=== PATIENT | male | born 1950 | race Caucasian/White ===

== ENCOUNTER 2019-03-17 22:10 | Emergency (ER) | payer MEDICARE ==
[2019-03-17] MEDS ORDERED: NS 0.9% 1000 ML** 1,000 ML IV.FLUID IV ONE (22:39)
--- NOTE | 2019-03-17 22:47 | ED ---
Lower Extremity - HPI Summary HPI Summary: Pt is a 69 y/o M presenting to the ED with a chief complaint of RLE pain. He states he was walking his dogs yesterday when they ran into him, knocking him to the ground, twice. Both episodes were unwitnessed, but pt has been limping and complaining of pain in his R castellanos and R knee. Pts notes he woke up last night around 0100 in extreme pain with very warm skin, and he was very fatigued and slept all day today. He has also been slightly short of breath with some chest wall pain, and has not eaten much d/t sleeping all day. - History of Current Complaint Chief Complaint: EDExtremityLower Stated Complaint: PAIN IN BOTH LEGS PER PT Time Seen by Provider: 03/17/19 22:32 Hx Obtained From: Patient Mechanism Of Injury: Fall From A Standing Position Onset of Pain: Immediate Onset/Duration: Still Present Severity Initially: Moderate Severity Currently: Severe Pain Intensity: 8 Pain Scale Used: 0-10 Numeric Timing: Constant, Lasting Hours Location: Is Discrete @ - RLE Associated Signs And Symptoms: Positive: Fever, Knee Pain Aggravating Factor(s): Nothing Alleviating Factor(s): Nothing Able to Bear Weight: Yes - limping - Allergies/Home Medications Allergies/Adverse Reactions: Allergies Allergy/AdvReac Type Severity Reaction Status Date / Time lacosamide [From Vimpat] Allergy Unknown Verified 03/17/19 22:16 Reaction Details levofloxacin [From Levaquin] Allergy Unknown Verified 03/17/19 22:16 Reaction Details lorazepam [From Ativan] Allergy Unknown Verified 03/17/19 22:16 Reaction Details oxcarbazepine Allergy Unknown Verified 03/17/19 22:16 [From Trileptal] Reaction Details Home Medications: Home Medications Atorvastatin* [Lipitor*] 40 mg PO DAILY 03/17/19 [History Confirmed 03/17/19] Famotidine 20 mg PO BID 03/17/19 [History Confirmed 03/17/19] Folic Acid 1 mg PO DAILY 03/17/19 [History Confirmed 03/17/19] Gabapentin CAP(*) [Neurontin 300 CAP(*)] 300 mg PO TID 03/17/19 [History Confirmed 03/17/19] Metoprolol Tartrate TAB* [Lopressor TAB*] 12.5 mg PO DAILY 03/17/19 [History Confirmed 03/17/19] OLANzapine TAB* [Zyprexa 5 MG TAB*] 5 mg PO DAILY 03/17/19 [History Confirmed ] Sertraline HCl [Zoloft] 150 mg PO DAILY 03/17/19 [History Confirmed 03/17/19] Tamsulosin HCl [Flomax] 0.4 mg PO DAILY 03/17/19 [History Confirmed 03/17/19] Thiamine HCl 100 mg PO DAILY 03/17/19 [History Confirmed 03/17/19] lamoTRIgine [Lamotrigine] 100 mg PO BID 03/17/19 [History Confirmed 03/17/19] PMH/Surg Hx/FS Hx/Imm Hx Previously Healthy: Yes Endocrine/Hematology History: Reports: Hx Anticoagulant Therapy Denies: Hx Diabetes Cardiovascular History: Reports: Hx Atrial Fibrillation, Hx Myocardial Infarction - 2012, w/ stent Neurological History: Reports: Hx CVA - 11/2014, Hx Seizures - "nonvisible" dx' ed 2015 Infectious Disease History: No Infectious Disease History: Denies: Traveled Outside the [place] in Last 30 Days - Family History Known Family History: Negative: Diabetes - Social History Lives: With Family Alcohol Use: None Hx Substance Use: No Substance Use Type: Reports: None Hx Tobacco Use: No Smoking Status (MU): Never Smoked Tobacco Review of Systems Positive: Fever - subjective - pt felt very warm, Fatigue, Other - decreased appetite Positive: Chest Pain - chest wall Positive: Shortness Of Breath Positive: Arthralgia, Myalgia All Other Systems Reviewed And Are Negative: Yes Physical Exam - Summary Physical Exam Summary: Appearance: Healthy-appearing man lying on the stretcher. Noted to be somewhat hypertensive in triage, but BP appears to have improved spontaneously. Skin: Warm, dry, no obvious rash Eyes: sclera anicteric, no conjunctival pallor ENT: mucous membranes moist, pharynx appears normal Neck: Supple, nontender Respiratory: Clear to auscultation, no signs of respiratory distress Cardiovascular: Irregularly irregular rhythm. No murmurs. Normal distal pulses in tibial and radial bilaterally. Abdomen: Soft, nontender, normal active bowel sounds present Musculoskeletal: Normal, Strength/ROM Intact. No external signs of trauma to either leg. No pain on ranging of hip or knee. Neurological: A&Ox3, awake and alert, mentation is normal. Speech is a bit halting, but he can answer questions and converse normally. Psychiatric: affect is normal, does not appear anxious or depressed Triage Information Reviewed: Yes Vital Signs On Initial Exam: Initial Vitals Temp Pulse Resp BP Pulse Ox 99 F 89 18 88/58 94 03/17/19 22:13 03/17/19 22:13 03/17/19 22:13 03/17/19 22:13 03/17/19 22:13 Vital Signs Reviewed: Yes Procedures - Sedation Patient Received Moderate/Deep Sedation with Procedure: No Diagnostics - Vital Signs Vital Signs Temp Pulse Resp BP Pulse Ox 03/17/19 22:13 99 F 89 18 88/58 94 - Laboratory Result Diagrams: 03/17/19 22:50 03/17/19 22:50 Lab Statement: Any lab studies that have been ordered have been reviewed, and results considered in the medical decision making process. - Radiology CXR Radiology Interpretation Completed By: ED Physician Summary of Radiographic Findings: No acute process. Pending official radiology report. Hip/Pelvis XR Radiology Interpretation Completed By: ED Physician Summary of Radiographic Findings: No fracture. Pending official radiology report. Knee XR Radiology Interpretation Completed By: ED Physician Summary of Radiographic Findings: No fracture. Pending official radiology report. RLE XR Radiology Interpretation Completed By: ED Physician Summary of Radiographic Findings: No fracture. Pending official radiology report. Lower Extremity Course/Dx - Course Course Of Treatment: Pt is a 69 y/o M presenting to the ED with a chief complaint of RLE pain. He states he was walking his dogs yesterday when they ran into him, knocking him to the ground, twice. Both episodes were unwitnessed , but pt has been limping and complaining of pain in his R castellanos. Pts notes he woke up last night around 0100 in extreme pain with very warm skin, and he was very fatigued and slept all day today. He has also been slightly short of breath with some chest wall pain, and has not eaten much d/t sleeping all day. Hx of hemorrhagic CVA, CA w/ stents, nonvisible seizures, and AFib. Pt's physical includes high blood pressure noted on triage that seems to have spontaneously resolved, irregularly irregular cardiac rhythm, no external signs of trauma to either LE, no pain with ROM at hip and knee, and the pt's speech is a bit halting, but he can answer questions and converse normally. CXR shows no acute process. R knee XR, RLE XR, and Hip/Pelvis XR all show no acute fracture. Pending official radiology report. Pt will be d/c'ed with dx of malaise and fall. He is stable and agreeable with this plan. - Diagnoses Provider Diagnoses: Malaise, Fall Discharge ED - Sign-Out/Discharge Documenting (check all that apply): Patient Departure - Discharge Plan Condition: Good Disposition: HOME Patient Education Materials: Fall Prevention for Older Adults (ED), Viral Syndrome (ED) Referrals: [facility] [Outside] Additional Instructions: If you seem to improve over the next few days no specific followup is needed, but certainly if you start feeling worse in any way we should see you back. - Billing Disposition and Condition Condition: GOOD Disposition: Home - Attestation Statements Document Initiated by Chapis: Yes Documenting Scribe: Justina Echevarria Provider For Whom Chapis is Documenting (Include Credential): Diaz Lockhart MD. Scribe Attestation: Justina Head, cheyed for Diaz Lockhart MD. on 03/18/19 at 0536. Scribe Documentation Reviewed: Yes Provider Attestation: The documentation as recorded by the Justina duff accurately reflects the service I personally performed and the decisions made by Diaz jonas MD. Status of Scribe Document: Viewed
[2019-03-17 22:59] LABS: ABS Basophils 0.1 10^3/ul (0-0.2); ABS Eosinophils 0.2 10^3/ul (0-0.6); ABS Lymphocytes 1.4 10^3/ul (1.0-4.8); ABS Monocytes 0.9 10^3/ul (0-0.8); ABS Neutrophils 4.8 10^3/ul (1.5-7.7); Eosinophil % 3.2 %; Hematocrit 40 % (42-52); Hemoglobin 13.3 g/dL (14.0-18.0); Lymphocyte % 19.2 %; Mean Corpuscular HGB Conc 33 g/dL (31-36); Mean Corpuscular Hemoglobin 31 pg (27-31); Mean Corpuscular Volume 94 fL (80-94); Mean Platelet Volume 9.1 fL (7.4-10.4); Platelet Count 186 10^3/uL (150-450); Red Blood Count 4.26 10^6 /uL (4.18-5.48); Red Cell Distribution Width 14 % (10-15); White Blood Count 7.4 10^3/uL (3.5-10.8)
[2019-03-17 23:07] LABS: Activated Partial Thrombo Time 39.5 seconds (26.0-38.0); INR 1.62 (0.82-1.09)
[2019-03-17 23:15] LABS: Albumin 3.7 g/dL (3.2-5.2); Albumin/Globulin Ratio 1.4 (1-3); BUN/Creatinine Ratio 10.4 (8-20); Calcium 9.1 mg/dL (8.6-10.3); EGFR African American 69.1 (>60); EGFR Non-African American 57.1 (>60); Globulin 2.6 g/dL (2-4); Potassium 4.2 mmol/L (3.5-5.0); Total Bilirubin 0.7 mg/dL (0.2-1.0); Total Protein 6.3 g/dL (6.4-8.9)
[2019-03-17 23:18] LABS: Troponin I 0.01 ng/mL (<0.03)
[2019-03-17] MEDS ORDERED: Acetaminophen TAB* 325 MG PO ONE (23:37)
[2019-03-18 02:13] LABS: Urine Appearance Clear; Urine Bilirubin Negative (Negative); Urine Blood Negative (Negative); Urine Color Yellow; Urine Glucose Negative (Negative); Urine Ketones Negative (Negative); Urine Nitrite Negative (Negative); Urine Protein Negative (Negative); Urine Specific Gravity 1.019 (1.010-1.030); Urine Urobilinogen Negative (Negative)
[2019-03-18 04:16] VITALS: BP 104/71
== END 2019-03-18 04:31 | disposition home or self-care (01) ==
LOC: ED 22:10
DX: R53.81 Other malaise (principal); M79.605 Pain in left leg; M79.604 Pain in right leg; W01.0XXA Fall on same level from slipping, tripping and stumbling without subsequent striking against object, initial encounter; Y92.9 Unspecified place or not applicable; R06.02 Shortness of breath; R07.89 Other chest pain; Z79.899 Other long term (current) drug therapy; Z79.01 Long term (current) use of anticoagulants; I48.91 Unspecified atrial fibrillation; I25.2 Old myocardial infarction; Z86.73 Personal history of transient ischemic attack (TIA), and cerebral infarction without residual deficits
CPT/HCPCS: 36415; 71046; 80053; 81003; 83605; 84484; 85025; 85610; 85730; 87040; 96360; 96361; 99283; A9270-GY